=== PATIENT | male | born 1955 | race Caucasian/White ===

== ENCOUNTER → 2018-10-09 14:11 | Outpatient (CLI) | payer OTHER, SELFPAY ==
--- NOTE | 2018-10-09 | DI.RAD.S_ITS ---
This blank DEXA report has been sent in error by the PACS system. The correct and complete report will be forthcoming in 1-2 days. Thank you for your patience and understanding. Dictated by: Brian Ellis M.D. on 10/09/2018 at 15:32 Approved by: Brian Ellis M.D. on 10/09/2018 at 15:32
== END ==
PROVIDERS: PCP Internal Medicine; Visit Provider Internal Medicine
DX: M81.0 Age-related osteoporosis without current pathological fracture (principal); Z82.62 Family history of osteoporosis
CPT/HCPCS: 77080

== ENCOUNTER → 2018-10-23 14:36 | Outpatient (CLI) | payer OTHER, SELFPAY ==
[2018-10-23 15:29] LABS: Blood Urea Nitrogen 27 mg/dL (9-20); Calcium 9.4 mg/dL (8.4-10.2); Carbon Dioxide 23 mmol/L (22-32); Chloride 104 mmol/L (98-107); Estimated Glomerular Filt Rate > 60.0 mL/min (>60); Glucose 107 mg/dL (80-110); HEMOLYSIS 22 (0-50); Sodium 138 mmol/L (137-145)
[2018-10-27 16:09] LABS: Parathyroid Hormone Int 23 pg/mL (14-64)
== END ==
PROVIDERS: PCP Internal Medicine; Visit Provider Internal Medicine
DX: M81.0 Age-related osteoporosis without current pathological fracture (principal); D35.1 Benign neoplasm of parathyroid gland
CPT/HCPCS: 36415; 80048; 83970; 84443

== ENCOUNTER → 2018-12-25 12:24 | Outpatient (CLI) | payer OTHER, SELFPAY ==
[2018-12-25 13:32] LABS: BUN Creatinine Ratio 19.1 (6-22); Blood Urea Nitrogen 21 mg/dL (9-20); Estimated Glomerular Filt Rate > 60.0 mL/min (>60)
== END ==
PROVIDERS: PCP Internal Medicine; Visit Provider Internal Medicine
DX: M81.0 Age-related osteoporosis without current pathological fracture (principal)
CPT/HCPCS: 36415; 82565; 84520

== ENCOUNTER → 2020-04-27 16:39 | Outpatient (CLI) | payer OTHER, SELFPAY ==
[2020-04-27 17:52] LABS: BUN Creatinine Ratio 20.4 (6-22); Blood Urea Nitrogen 22 mg/dL (9-20); Calcium 9.6 mg/dL (8.4-10.2); Carbon Dioxide 35 mmol/L (22-32); Chloride 104 mmol/L (98-107); Estimated Glomerular Filt Rate > 60.0 mL/min (>60); Glucose 113 mg/dL (80-110); HEMOLYSIS < 15 (0-50); Potassium 4.2 mmol/L (3.4-5.1); Sodium 141 mmol/L (137-145)
== END ==
PROVIDERS: PCP Internal Medicine; Referring Provider Internal Medicine; Visit Provider Internal Medicine
DX: M81.0 Age-related osteoporosis without current pathological fracture (principal)
CPT/HCPCS: 36415; 80048

== ENCOUNTER → 2020-06-23 19:19 | Outpatient (ROUT) | payer OTHER, SELFPAY ==
[2020-06-23 19:36] LABS: HEMOLYSIS < 15 (0-50); Iron 93 ug/dL (49-181)
[2020-06-23 19:38] LABS: Aspartate Aminotransferase 39 IU/L (17-59); Blood Urea Nitrogen 21 mg/dL (9-20); Calcium 9.7 mg/dL (8.4-10.2); Carbon Dioxide 32 mmol/L (22-32); Chloride 103 mmol/L (98-107); Cholesterol 152 mg/dL (140-199); Estimated Glomerular Filt Rate > 60.0 mL/min (>60); Glucose 90 mg/dL (80-110); HDL Cholesterol 49 mg/dL (40-60); HEMOLYSIS < 15 (0-50); LDL Cholesterol Calculated 82 mg/dL (<100); Potassium 4.2 mmol/L (3.4-5.1); Sodium 139 mmol/L (137-145); Triglycerides 106 mg/dL (35-150)
[2020-06-23 19:47] LABS: Percent Iron Saturation 29 % (20-50); Total Iron Binding Capacity 316 ug/dL (261-462); Transferrin 246 mg/dL (206-381)
[2020-06-23 20:09] LABS: Prostate Specific Antigen 1.34 ng/mL (0.10-4.00)
[2020-06-23 20:12] LABS: Ferritin 88 ng/mL (18-464); Testosterone 331 ng/dL (71.8-623)
== END ==
PROVIDERS: PCP Internal Medicine; Visit Provider Internal Medicine
DX: Z00.00 Encounter for general adult medical examination without abnormal findings (principal); E78.2 Mixed hyperlipidemia; I67.89 Other cerebrovascular disease; D64.9 Anemia, unspecified; N52.9 Male erectile dysfunction, unspecified
CPT/HCPCS: 80048; 80061; 82728; 83540; 83550; 84153; 84403; 84450; 85025

== ENCOUNTER → 2020-06-29 15:30 | Outpatient (CLI) | payer OTHER, SELFPAY ==
[2020-06-29 17:05] LABS: Add Manual Diff / Slide Review NO; Basophils Absolute Auto 0 /uL (0-100); Basophils Percent Auto 0.7 % (0-2); Eosinophils Absolute Auto 100 /uL (0-450); Eosinophils Percent Auto 1.9 % (2-4); Hematocrit 43.9 % (41-53); Hemoglobin 14.8 g/dL (13.5-17.5); Lymphocytes Absolute Auto 1900 /uL (1100-4500); Lymphocytes Percent Auto 30.9 % (25-40); Mean Corpuscular HGB Conc 33.7 % (30-36); Mean Corpuscular Hemoglobin 32.2 PG (26-34); Mean Corpuscular Volume 95.7 fL (80-100); Monocytes Absolute Auto 400 /uL (0-900); Monocytes Percent Auto 6.7 % (3-14); Neutrophils Absolute Auto 3700 /uL (1500-7000); Neutrophils Percent Auto 59.8 % (50-75); Platelet Count 252 X10^3/uL (150-400); Red Blood Cell Count 4.59 X10^6/uL (4.5-5.9); Red Cell Distribution Width 12.7 % (11.6-14.8); White Blood Cell Count 6.2 X10^3/uL (4.5-11.0)
== END ==
PROVIDERS: PCP Internal Medicine; Referring Provider Internal Medicine; Visit Provider Internal Medicine
DX: D64.9 Anemia, unspecified (principal); R79.9 Abnormal finding of blood chemistry, unspecified
CPT/HCPCS: 85025

== ENCOUNTER → 2020-07-28 10:58 | Outpatient (CLI) | payer OTHER, SELFPAY ==
[2020-07-28] MEDS: COVID-19 VACC(MODERNA-1)/PF 100 MCG/0.5 ML VIAL IM (11:02)
== END ==
PROVIDERS: PCP Internal Medicine; Visit Provider Internal Medicine
DX: Z23 Encounter for immunization (principal)
CPT/HCPCS: 0011A; 91301

== ENCOUNTER → 2020-08-25 10:48 | Outpatient (CLI) | payer OTHER, SELFPAY ==
[2020-08-25] MEDS: COVID-19 VACC #2, MRNA(MOD) 100 MCG/0.5 ML VIAL IM (10:55)
== END ==
PROVIDERS: PCP Internal Medicine; Visit Provider Internal Medicine
DX: Z23 Encounter for immunization (principal)
CPT/HCPCS: 0012A; 91301

== ENCOUNTER → 2021-02-01 15:02 | Outpatient (CLI) | payer OTHER, SELFPAY | PROVIDERS: PCP Internal Medicine; Referring Provider Internal Medicine; Visit Provider Internal Medicine | DX: M85.852 Other specified disorders of bone density and structure, left thigh (principal); Z82.62 Family history of osteoporosis | CPT/HCPCS: 77080 ==

== ENCOUNTER → 2021-05-07 11:23 | Outpatient (CLI) | payer OTHER, SELFPAY ==
[2021-05-07 14:37] LABS: Alanine Aminotransferase 33 IU/L (<50); Albumin Globulin Ratio 1.5 (1.0-2.8); Alkaline Phosphatase 92 U/L (38-126); Aspartate Aminotransferase 33 IU/L (17-59); BUN Creatinine Ratio 16.5 (6-22); Bilirubin Total 0.8 mg/dL (0.2-1.3); Blood Urea Nitrogen 19 mg/dL (9-20); Calcium 9.6 mg/dL (8.4-10.2); Carbon Dioxide 29 mmol/L (22-32); Chloride 104 mmol/L (98-107); Estimated Glomerular Filt Rate > 60.0 mL/min (>60); Globulin 2.7 g/dL (1.7-4.1); Glucose 104 mg/dL (80-110); HEMOLYSIS < 15 (0-50); Potassium 4.6 mmol/L (3.4-5.1); Sodium 140 mmol/L (137-145); Total Protein 6.7 g/dL (6.3-8.2)
== END ==
PROVIDERS: PCP Internal Medicine; Referring Provider Internal Medicine; Visit Provider Internal Medicine
DX: M81.0 Age-related osteoporosis without current pathological fracture (principal)
CPT/HCPCS: 36415; 80053

== ENCOUNTER → 2021-11-30 11:47 | Outpatient (CLI) | payer MEDICARE, OTHER, SELFPAY ==
--- NOTE | 2021-11-30 11:51 | DI.RAD.S_ITS ---
PROCEDURE: XR KUB INDICATIONS: kidney stones TECHNIQUE: One view of the abdomen acquired. COMPARISON: [facility], , KUB XRAY (1 VIEW ABDOMEN), 04/28/2017, 13:21. FINDINGS: Surgical changes and devices: None. Bowel: Significant fecal stasis throughout the colon is seen. No gross free air. Soft tissues: No suspicious abdominal calcifications. Visualized solid organ contours appear normal in size. Bones: No suspicious bony lesions. IMPRESSION: No gross renal stone is seen. Constipation. No gross free air. Dictated by: Brian Ellis M.D. on 11/30/2021 at 12:13 Approved by: Brian Ellis M.D. on 11/30/2021 at 12:14
== END ==
PROVIDERS: PCP Internal Medicine; Referring Provider Specialist; Visit Provider Specialist
DX: N20.1 Calculus of ureter (principal); N23 Unspecified renal colic; K59.00 Constipation, unspecified; Z87.442 Personal history of urinary calculi
CPT/HCPCS: 74018

== ENCOUNTER → 2022-02-08 11:55 | Outpatient (CLI) | payer MEDICARE, OTHER, SELFPAY ==
[2022-02-08 12:38] LABS: Hematocrit 43.5 % (41-53); Hemoglobin 14.9 g/dL (13.5-17.5); Mean Corpuscular HGB Conc 34.2 % (30-36); Mean Corpuscular Hemoglobin 33.2 PG (26-34); Platelet Count 234 X10^3/uL (150-400); Red Blood Cell Count 4.48 X10^6/uL (4.5-5.9); Red Cell Distribution Width 13.3 % (11.6-14.8); White Blood Cell Count 5.8 X10^3/uL (4.5-11.0)
[2022-02-08 12:51] LABS: Alanine Aminotransferase 25 IU/L (<50); Albumin 4.5 g/dL (3.5-5.0); Albumin Globulin Ratio 1.5 (1.0-2.8); Alkaline Phosphatase 82 U/L (38-126); Aspartate Aminotransferase 31 IU/L (17-59); BUN Creatinine Ratio 22.2 (6-22); Blood Urea Nitrogen 22 mg/dL (9-20); Calcium 9.2 mg/dL (8.4-10.2); Carbon Dioxide 30 mmol/L (22-32); Chloride 105 mmol/L (98-107); Cholesterol 161 mg/dL (140-199); Estimated Glomerular Filt Rate > 60 mL/min (>60); Glucose 94 mg/dL (80-110); HDL Cholesterol 58 mg/dL (40-60); HEMOLYSIS < 15 (0-50); LDL Cholesterol Calculated 82 mg/dL (<100); Potassium 4.2 mmol/L (3.4-5.1); Sodium 141 mmol/L (137-145); Total Protein 7.5 g/dL (6.3-8.2); Triglycerides 104 mg/dL (35-150)
[2022-02-08 13:16] LABS: Prostate Specific Antigen 1.83 ng/mL (0.10-4.00)
[2022-02-08 13:17] LABS: TSH w/ Reflex to FT4 1.25 uIU/mL (0.47-4.68)
[2022-02-08 13:18] LABS: Testosterone 375 ng/dL (71.8-623)
[2022-02-09 07:36] LABS: Calcium 9.4 mg/dL (8.6-10.2); Parathyroid Hormone, Intact 37 pg/mL (15-65)
== END ==
PROVIDERS: PCP Internal Medicine; Referring Provider Internal Medicine; Visit Provider Internal Medicine
DX: E78.2 Mixed hyperlipidemia (principal); N40.0 Benign prostatic hyperplasia without lower urinary tract symptoms; I67.9 Cerebrovascular disease, unspecified; N52.9 Male erectile dysfunction, unspecified; Z86.39 Personal history of other endocrine, nutritional and metabolic disease
CPT/HCPCS: 36415; 80053; 80061; 82310; 83970; 84153; 84403; 84443; 85027

== ENCOUNTER → 2022-02-15 11:28 | Outpatient (CLI) | payer MEDICARE, OTHER, SELFPAY | PROVIDERS: PCP Internal Medicine; Referring Provider Internal Medicine; Visit Provider Internal Medicine | DX: M81.0 Age-related osteoporosis without current pathological fracture (principal); Z86.39 Personal history of other endocrine, nutritional and metabolic disease | CPT/HCPCS: 77080 ==

== ENCOUNTER → 2022-03-15 16:05 | Outpatient (CLI) | payer MEDICARE, OTHER, SELFPAY ==
--- NOTE | 2022-03-15 16:07 | DI.MRI.S_ITS ---
PROCEDURE: MR CERVICAL SPINE WO CON INDICATIONS: left C6 radiculopathy TECHNIQUE: Noncontrast sagittal T1 spin echo and T2 fast spin echo, sagittal STIR, foraminal oblique sagittal T2 fast spin echo, and axial gradient echo or T2 fast spin echo through the cervical spine. COMPARISON: [facility], , C-SPINE WITHOUT CONTRAST, 01/21/2011, 11:58. FINDINGS: Image quality: Excellent. Alignment and Curvature: There is normal bony alignment. Bone Marrow: Marrow demonstrates normal overall signal. Spinal Cord: Visualized spinal cord has normal size and signal. No cerebellar tonsillar herniation. Paraspinous Soft Tissues: No paravertebral masses. Prevertebral soft tissues are normal in thickness. C2-C3: Normal appearance. C3-C4: Posterior disc bulge results in mild central stenosis. Hypertrophic uncovertebral joint associated with moderate left and no right foraminal stenosis. C4-C5: Disc space narrowing and posterior disc osteophyte complex results in mild central stenosis. Mild right and no left foraminal stenosis C5-C6: Disc space narrowing with posterior disc osteophyte complex and hypertrophic uncovertebral joints results in severe left and moderate right foraminal stenosis. Mild central stenosis. C6-C7: Disc space narrowing and posterior disc osteophyte complex again results in mild central stenosis. Moderate left and right foraminal stenosis C7-T1: Normal appearance. IMPRESSION: 1. Multilevel degenerative disc disease and arthropathy results in varying degrees of central and foraminal stenosis including severe left foraminal stenosis at C5-6 Approved by: Kenneth Swartz M.D. on 03/15/2022 at 18:15
== END ==
PROVIDERS: PCP Internal Medicine; Referring Provider Physical Medicine & Rehabilitation; Visit Provider Physical Medicine & Rehabilitation
DX: M54.12 Radiculopathy, cervical region (principal); M50.321 Other cervical disc degeneration at C4-C5 level; M48.02 Spinal stenosis, cervical region
CPT/HCPCS: 72141

== ENCOUNTER 2022-04-25 08:46 | Outpatient (CLI) | payer MEDICARE, OTHER, SELFPAY ==
[2022-04-25] VITALS (9 sets, daily range): BP systolic 129–148; BP diastolic 82–94; PULSE 66–75; RESP 13–16; TEMP 36.2; O2SAT 98–100
--- NOTE | 2022-04-25 08:47 | DI.RAD.S_ITS ---
PROCEDURE: PAIN C/T FACET INJ/BLK 1ST L INDICATIONS: SPINAL STENOSIS COMPARISON: None. FINDINGS: Fluoroscopic spot filming was performed to verify placement of spinal needles near the C4-5, C5-6 and C6-7 level(s), as labeled on the films. Appropriate location(s) of the needle tip(s) was confirmed by injection of iodinated contrast. IMPRESSION: Fluoroscopic guidance Approved by: Kenneth Swartz M.D. on 04/25/2022 at 16:31
[2022-04-25] MEDS: MIDAZOLAM 2 MG/2 ML VIAL IV (09:38)
[2022-04-25] MEDS: IOPAMIDOL 15 ML VIAL 3 ML INJ (09:43)
[2022-04-25] MEDS: DEXAMETHASONE 10 MG/ML VIAL 30 MG INJ (09:43)
[2022-04-25] MEDS: BUPIVACAINE 0.5% (PF) VIAL 2 ML INJ (09:43)
[2022-04-25] MEDS: MIDAZOLAM 2 MG/2 ML VIAL 1 MG IV (09:46)
--- NOTE | 2022-04-25 09:59 | P.PCN_ITS ---
Date/Time/Diagnoses Date of procedure: 04/25/22 Time of procedure: 09:59 Pre-procedure diagnosis: 1. FACET ARTHROPATHY 2. AXIAL NECK PAIN Post-procedure diagnosis: same Procedure Notes Procedure: 1. FLUOROSCOPICALLY GUIDED, CONTRAST-CONTROLLED LEFT C4/5, C5/6 AND C6/7 FACET JOINT INJECTIONS WITH CONSCIOUS SEDATION. Indications: Ashok is referred by Dr. Rose for treatment of Axial Neck Pain Physician: Rojelio Echavarria Total Fluoroscopy time (seconds): 16 Total sedation minutes: 16 Complications: none Procedure in detail & Post-procedure care: DESCRIPTION OF PROCEDURE Fluoroscopically guided, contrast-controlled left C4/5, C5/6 and C6/7 facet joint injections with conscious sedation. Following review of allergy and review of potential side effects and complications, including, but not necessarily limited to, infection, allergic reaction, local tissue breakdown, stroke, temporary or permanent nerve injury and paralysis, the patient indicated that the patient understood and agreed to proceed. An informed consent document was signed by the patient, witnessed by a nurse, and placed in the patient's chart. Additionally, other treatment options including medications, modalities, and physical therapy were reviewed with the patient. After review of previous anaesthesic history and IV conscious sedation the patient was deemed safe to proceed with today?s procedure with IV conscious sedation as ASA class II designation. Safety time-out was performed to confirm patient ID, procedure to be performed and site of procedure. IV sedation was accomplished with a combination of 3mg of Versed was administered by the RN after DO order, titrated to patient comfort during the course of the procedure while the patient remained responsive to all verbal commands In the prone position, following sterile prep and drape of the cervical spine region, the posterior aspect of the left C4/5, C5/6 and C6/7 facet joints were identified fluoroscopically. The skin was anesthetized via a 25-gauge 1.5-inch needle with 1% lidocaine solution into the corresponding facet joints. At this point, a 25-gauge 2.5-inch spinal needle was atraumatically introduced and advanced under fluoroscopic guidance into the corresponding facet joints. Following negative aspiration, injections of approximately 0.2cc of Isovue 200 confirmed interarticular placement without vascular uptake. At this point, a total of 1cc including 0.5cc or 5mg of dexamethasone combined with 0.5cc of 1% lidocaine solution was injected without complication into each of the corresponding facet joints. The procedure tolerated the procedure well without signs or symptoms of complications prior to transfer to the recovery area continued monitoring without incident. The patient was then transferred to the recovery area where they were observed for an appropriate period of time after the injection. The patient reported a VAS score of 7 prior to the procedure and a post- procedure VAS of 0. POST OP INSTRUCTIONS They were provided a Pain Log to continue to record their response to the target-specific procedure prior to their follow-up visit with their referring physician. Additionally, specific post-injection care instructions and a contact number to our office were provided if concerns arise regarding possible complications associated with the procedure are suspected.
== END 2022-04-25 10:26 | disposition home or self-care (01) ==
LOC: RAD 08:47
PROVIDERS: PCP Internal Medicine; Referring Provider Physical Medicine & Rehabilitation; Visit Provider Physical Medicine & Rehabilitation
DX: M47.812 Spondylosis without myelopathy or radiculopathy, cervical region (principal)
CPT/HCPCS: 64490; 64491; 64492; 99152; J1100; J2250

== ENCOUNTER → 2022-05-13 15:30 | Outpatient (CLI) | payer MEDICARE, OTHER, SELFPAY ==
[2022-05-13 17:26] LABS: Alanine Aminotransferase 28 IU/L (<50); Albumin 4.1 g/dL (3.5-5.0); Albumin Globulin Ratio 1.2 (1.0-2.8); Alkaline Phosphatase 115 U/L (38-126); Aspartate Aminotransferase 27 IU/L (17-59); BUN Creatinine Ratio 19.3 (6-22); Bilirubin Total 0.5 mg/dL (0.2-1.3); Blood Urea Nitrogen 22 mg/dL (9-20); Calcium 9.3 mg/dL (8.4-10.2); Carbon Dioxide 26 mmol/L (22-32); Chloride 105 mmol/L (98-107); Estimated Glomerular Filt Rate > 60 mL/min (>60); Globulin 3.3 g/dL (1.7-4.1); Glucose 91 mg/dL (80-110); HEMOLYSIS < 15 (0-50); Potassium 4.1 mmol/L (3.4-5.1); Sodium 142 mmol/L (137-145); Total Protein 7.4 g/dL (6.3-8.2)
== END ==
PROVIDERS: PCP Internal Medicine; Referring Provider Internal Medicine; Visit Provider Internal Medicine
DX: M81.8 Other osteoporosis without current pathological fracture (principal)
CPT/HCPCS: 36415; 80053

== ENCOUNTER 2022-05-30 08:59 | Outpatient (CLI) | payer MEDICARE, OTHER, SELFPAY ==
[2022-05-30] VITALS (8 sets, daily range): BP systolic 137–164; BP diastolic 94–100; PULSE 65–79; RESP 15–20; TEMP 36; O2SAT 97–100
--- NOTE | 2022-05-30 09:37 | DI.RAD.S_ITS ---
PROCEDURE: PAIN C/T INTERLAMINAR INJECT INDICATIONS: SPINAL STENOSIS COMPARISON: None. FINDINGS: Fluoroscopic spot filming was performed to verify placement of spinal needles at the C6-7 level(s), as labeled on the films. Appropriate location(s) of the needle tip(s) was confirmed by injection of iodinated contrast. IMPRESSION: Intraoperative fluoroscopy used for C6-7 epidural injection. Dictated by: Kamla Hunter M.D. on 05/30/2022 at 14:51 Approved by: Kamla Hunter M.D. on 05/30/2022 at 14:51
[2022-05-30] MEDS: MIDAZOLAM 2 MG/2 ML VIAL 4 MG IV (09:51)
[2022-05-30] MEDS: IOPAMIDOL 15 ML VIAL 3 ML INJ (09:53)
[2022-05-30] MEDS: BUPIVACAINE 0.25% (PF) VIAL 2 ML INJ (09:54)
[2022-05-30] MEDS: DEXAMETHASONE 10 MG/ML VIAL 30 MG INJ (09:56)
--- NOTE | 2022-05-30 10:09 | P.PCN_ITS ---
Date/Time/Diagnoses Date of procedure: 05/30/22 Time of procedure: 10:09 Pre-procedure diagnosis: 1. CERVICAL STENOSIS, 2. CERVICAL HNP WITH UPPER EXTREMITY RADICULAR FEATURES Post-procedure diagnosis: same Procedure Notes Procedure: 1. FLUORSCOPICALLY GUIDED CONTRAST CONTROLLED INTERLAMINAR EPIDURAL STEROID INJECTION - C6/7 TL RICHA Indications: Ashok is referred by Dr. Rose for treatment of Cervical HNP with Upper Extremity Paresthesias. Physician: Rojelio Echavarria Total Fluoroscopy time (seconds): 2 Total sedation minutes: 15 Complications: none Procedure in detail & Post-procedure care: FINDINGS Cervical Stenosis due to disc deterioration and nerve root irritation and nerve root irritation DESCRIPTION OF PROCEDURE Fluoroscopically guided, contrast-controlled C6/7 translaminar epidural steroid injection with conscious sedation. Following review of allergy and review of potential side effects and complications, including, but not necessarily limited to, infection, allergic reaction, local tissue breakdown, temporary as well as permanent nerve injury, stroke, paralysis, and possible , the patient indicated that patient understood and agreed to proceed. An informed consent document was signed by the patient, witnessed by a nurse, and placed in the patient's chart. Additionally, other treatment options including modalities, medications, and physical therapy were reviewed with the patient. After review of previous anaesthesic history and IV conscious sedation the patient was deemed safe to proceed with today?s procedure with IV conscious sedation as ASA class II designation. Safety time-out was performed to confirm patient ID, procedure to be performed and site of procedure. IV sedation was accomplished with a combination of 4mg of Versed administered by the RN after DO order, titrated to patient comfort during the course of the procedure while the patient remained responsive to all verbal commands. In the prone position, following sterile prep and drape of the cervical region, the C6/7 translaminar space was identified fluoroscopically. The skin was anesthetized via a 25-gauge 1.5-inch needle with 1% lidocaine solution. At this point, a 25-gauge, 2.5-inch short bevel spinal needle was atraumatically introduced and advanced under fluoroscopic guidance into epidural space at the C6/7 translaminar space. Depth was confirmed on lateral view. Radiological data, including multiple fluoroscopic views of the cervical spine, reveal a spinal needle at the C6/7 translaminar space. Lateral views then show placement of the needle in the epidural space. Subsequent views show contrast material flowing superiorly and inferiorly in the epidural space. DSA fluoroscopy with live contrast injection, once again, confirmed no vascular or intrathecal uptake. At this point, using loss of resistance technique with saline and air, the epidural space was entered. Following negative aspiration, injection of approximately 1.5 cc of Isovue-200 with live fluoroscopy in the AP view confirmed epidural flow in the epidural space without vascular or intrathecal uptake observed. Subsequently, a test dose of 1 cc of 1% lidocaine solution was injected and patient was observed for two minutes without signs or symptoms of complications, including abdominal pain, shortness of breath, bilateral upper or lower extremity weakness, nausea and vomiting, prior to steroid injection. At this point, 3cc or 30mg of dexamethasone was then injected without incident. The patient tolerated the procedure well without signs or symptoms of complicat ions prior to being transferred to the recovery area for further monitoring, The patient was then transferred to the recovery area where they were observed for an appropriate period of time after the injection. The patient reported a VAS score of 6 prior to the procedure and a post-procedure VAS of 0. POST OP INSTRUCTIONS The patient was provided a Pain Log to continue to record their response to the target-specific procedure prior to follow-up visit with the referring provider. Additionally, specific post-injection care instructions and a contact number to our office were provided if concerns arise regarding possible complications associated with the procedure are suspected.
== END 2022-05-30 10:27 | disposition home or self-care (01) ==
LOC: RAD 09:00
PROVIDERS: PCP Internal Medicine; Referring Provider Physical Medicine & Rehabilitation; Visit Provider Physical Medicine & Rehabilitation
DX: M48.02 Spinal stenosis, cervical region (principal); M50.123 Cervical disc disorder at C6-C7 level with radiculopathy
CPT/HCPCS: 62321; 99152; J1100; J2250; J3490

== ENCOUNTER → 2022-10-17 16:20 | Outpatient (CLI) | payer MEDICARE, OTHER, SELFPAY ==
--- NOTE | 2022-10-17 16:21 | DI.RAD.S_ITS ---
PROCEDURE: XR LUMBAR SPINE MIN 4V INDICATIONS: Low back pain TECHNIQUE: 5 views of the lumbar spine were acquired, including bilateral oblique views. COMPARISON: [facility], CR, L-SPINE 2-3 VIEWS, 01/29/2013, 7:11. [facility], CR, L-SPINE 2-3 VIEWS, 04/17/2009, 11:10. FINDINGS: Bones: 5 nonrib-bearing vertebrae are present. There is normal bony alignment. No vertebral body compression fractures. No suspicious bony lesions. Moderate disc height loss at L4-5 and L5-S1. Facet arthrosis L5-S1. Soft tissues: Overlying bowel gas pattern is normal. No suspicious soft tissue calcifications. Oblique images: No pars defects. IMPRESSION: Moderate disc height loss at L4-5 and L5-S1. Facet arthrosis L5-S1. Dictated by: Isauro Acharya M.D. on 10/17/2022 at 16:51 Approved by: Isauro Acharya M.D. on 10/17/2022 at 16:53
== END ==
PROVIDERS: PCP Internal Medicine; Referring Provider Physical Medicine & Rehabilitation; Visit Provider Physical Medicine & Rehabilitation
DX: M47.817 Spondylosis without myelopathy or radiculopathy, lumbosacral region (principal); M54.50 Low back pain, unspecified; G89.29 Other chronic pain
CPT/HCPCS: 72110

== ENCOUNTER → 2022-10-28 13:40 | Outpatient (CLI) | payer MEDICARE, OTHER, SELFPAY ==
--- NOTE | 2022-10-28 13:42 | DI.MRI.S_ITS ---
PROCEDURE: MR LUMBAR SPINE WO CON INDICATIONS: Chronic progressive episodic low back pain TECHNIQUE: Noncontrast sagittal T1 spin echo and T2 fast echo, sagittal STIR, and T2 fast spin echo through the lumbar spine. In cases with scoliosis, additional coronal T2 fast spin echo may be performed. COMPARISON: [facility], MR, L-SPINE WITHOUT CONTRAST, 02/08/2013, 9:20. [facility], CR, XR LUMBAR SPINE MIN 4V, 10/17/2022, 16:27. FINDINGS: Image quality: Diagnostic, with note made of motion artifact. Alignment and Curvature: There is normal bony alignment. Bone Marrow: Marrow is of normal overall signal. No acute vertebral body compression fractures. Spinal Cord: Conus medullaris terminates at the T12-L1 level. Visualized cord demonstrates normal signal and size. Paraspinous Soft Tissues: No paravertebral masses. T12-L1: Normal appearance. L1-L2: No significant abnormality is seen. L2-L3: Level within normal limits. L3-L4: The disc height and disk signal are relatively well-preserved. Mild generalized disc bulge is seen. Mild facet joint hypertrophy is seen. Mild central canal narrowing is seen. There is minimal right-sided and [id number] left-sided neural foraminal narrowing. Minimal central canal narrowing is seen. These imaging findings have progressed compared to the prior study. L4-L5: Moderate loss of disc height is seen. Loss of disc signal is seen. Moderate disc bulge is seen, which is eccentric to the right. There is a central/right disc protrusion. There is a focal annular fissure seen posteriorly. Moderate facet joint hypertrophy is seen. There is moderate left-sided and at least moderate right-sided neural foraminal narrowing. There is a degree of compression seen upon the exiting right L4 nerve root. Mild central canal narrowing is seen. The neural foraminal narrowing has progressed compared to the prior. The previously seen central disc extrusion is improved compared to 2013. L5-S1: At least moderate loss of disc height and disc signal can be seen. Mild to moderate disc bulge is seen, which is slightly eccentric to the left. There is a slight central disc protrusion seen. There is a focal annular fissure seen posteriorly. Mild facet joint hypertrophy is seen. There is at least moderate bilateral neural foraminal narrowing seen. Minimal compression can be seen upon the exiting nerve roots. No significant central canal narrowing can be seen. There is slight progression compared to the prior. IMPRESSION: Lumbar spine degenerative changes are seen, which are worst inferiorly. The degenerative changes have overall progressed compared to 2013, although there is regression of the previously seen L4-L5 disc extrusion. Dictated by: Caden Kaye M.D. on 10/28/2022 at 15:15 Approved by: Caden Kaye M.D. on 10/28/2022 at 15:18
== END ==
PROVIDERS: PCP Internal Medicine; Referring Provider Physical Medicine & Rehabilitation; Visit Provider Physical Medicine & Rehabilitation
DX: M47.816 Spondylosis without myelopathy or radiculopathy, lumbar region (principal); M51.26 Other intervertebral disc displacement, lumbar region
CPT/HCPCS: 72148

== ENCOUNTER 2022-11-28 14:42 | Outpatient (CLI) | payer MEDICARE, OTHER, SELFPAY ==
[2022-11-28] VITALS (11 sets, daily range): BP systolic 108–137; BP diastolic 63–95; PULSE 64–82; RESP 13–21; TEMP 36.8; O2SAT 96–99
--- NOTE | 2022-11-28 14:43 | DI.RAD.S_ITS ---
PROCEDURE: PAIN L/S FACET INJ/BLK 1ST ADELFO COMPARISON: None. INDICATIONS: SPONDYLOSIS FINDINGS: Fluoroscopic views during facet joint injection at L4-5 and L5-S1 were performed. IMPRESSION: Fluoroscopic views during facet joint injection were performed. Dictated by: Hussein Quevedo M.D. on 11/28/2022 at 16:12 Approved by: Hussein Quevedo M.D. on 11/28/2022 at 16:13
[2022-11-28] MEDS: BETAMETHASONE 30 MG/5 ML MDV 12 MG INJ (15:24)
[2022-11-28] MEDS: BUPIVACAINE 0.5% (PF) 10 ML VIAL 5 ML INJ (15:28)
[2022-11-28] MEDS: IOPAMIDOL 15 ML VIAL 3 ML INJ (15:30)
[2022-11-28] MEDS: LIDOCAINE 1% (PF) 5 ML INJ (15:30)
[2022-11-28] MEDS: MIDAZOLAM 2 MG/2 ML VIAL 3 MG IV (15:31)
--- NOTE | 2022-11-28 15:44 | P.PCN_ITS ---
Date/Time/Diagnoses Date of procedure: 11/28/22 Time of procedure: 15:44 Pre-procedure diagnosis: 1. FACET ARTHROPATHY 2. AXIAL LBP 3. MULTILEVEL DDD Post-procedure diagnosis: same Procedure Notes Procedure: 1. FLUOROSCOPICALLY GUIDED CONTRAST CONTROLLED FACET JOINT INJECTIONS BILATERAL L4/5, L5/S1 Indications: Ashok is referred by Dr. Rose for treatment of Axial LBP Physician: Rojelio Echavarria Total Fluoroscopy time (seconds): 19 Total sedation minutes: 17 Complications: none Procedure in detail & Post-procedure care: FINDINGS Multilevel Facet Arthropathy with Clinically significant axial LBP DESCRIPTION OF PROCEDURE Fluoroscopically guided, contrast-controlled bilateral L4/5, L5/S1 facet joint injections. Following review of allergy and review of potential side effects and complications, including, but not necessarily limited to, infection, allergic reaction, local tissue breakdown, stroke, temporary or permanent nerve injury, paralysis, and possible , the patient indicated that the patient understood and agreed to proceed. An informed consent document was signed by the patient, witnessed by a nurse, and placed in the patient's chart. Additionally, other treatment options including medications, modalities, and physical therapy were reviewed with the patient. After review of previous anaesthesic history and IV conscious sedation the patient was deemed safe to proceed with today?s procedure with IV conscious sedation as ASA class II designation. Safety time-out was performed to confirm patient ID, procedure to be performed and site of procedure. IV sedation was accomplished with a combination of 3mg of Versed was administered by the RN after DO order, titrated to patient comfort during the course of the procedure while the patient remained responsive to all verbal commands In the prone position, following sterile prep and drape of the lumbar region, the posterior aspect of the L4/5, L5/S1 facet joints were identified fluoroscopically. The skin was anesthetized via a 25-gauge 1.5inch needle with 1% lidocaine solution into the corresponding facet joints. At this point, a 22- gauge 3.5-inch spinal needle was atraumatically introduced and advanced under fluoroscopic guidance into the corresponding facet joints. Following negative aspiration, injections of approximately 0.2cc of Isovue 200 confirmed interarticular placement without vascular uptake. The identical procedure was then performed at the L4/5, L5/S1 facet joints on the left. Radiological data, including multiple fluoroscopic views of the lumbosacral spine, reveal a spinal needle at the L4/5, L5/S1 facet joints bilaterally. Subsequent views show flow of contrast material both superiorly and inferiorly within the joint space without vascular or intrathecal uptake. At this point, a total of 0.5cc including a mixture of 0.25cc Marcaine and 0.25cc betamethasone was injected without complication into each of the corresponding facet joints. The patient tolerated the procedure well without signs or symptoms of complications prior to transfer to the recovery area continued monitoring without incident. The patient was then transferred to the recovery area where they were observed for an appropriate period of time after the injection. The patient reported a VAS score of 7 prior to the procedure and a post- procedure VAS of 0. POST OP INSTRUCTIONS The patient was provided a Pain Log to continue to record their response to the target-specific procedure prior to follow-up visit with their referring physician. Additionally, specific post-injection care instructions and a contact number to our office were provided if concerns arise regarding possible complications associated with the procedure are suspected.
== END 2022-11-28 16:26 | disposition home or self-care (01) ==
PROVIDERS: PCP Internal Medicine; Referring Provider Physical Medicine & Rehabilitation; Visit Provider Physical Medicine & Rehabilitation
DX: M47.816 Spondylosis without myelopathy or radiculopathy, lumbar region (principal)
CPT/HCPCS: 64493; 64494; 99152; 99153; J2250

== ENCOUNTER 2023-01-07 13:15 | Outpatient (CLI) | payer MEDICARE, OTHER, SELFPAY ==
[2023-01-07] VITALS (8 sets, daily range): BP systolic 129–168; BP diastolic 78–120; PULSE 60–75; RESP 12–19; TEMP 36.6; O2SAT 97–100
--- NOTE | 2023-01-07 13:18 | DI.RAD.S_ITS ---
PROCEDURE: PAIN L/S FACET INJ/BLK 1ST ADELFO COMPARISON: [facility], XA, PAIN L/S FACET INJ/BLK 1ST ADELFO, 11/28/2022, 15:23. INDICATIONS: SPONDYLOSIS FINDINGS: Access needle tips at bilateral L4, L5 and S1 asia-pedicular levels. Injection of small amount of contrast material demonstrates axis needle tips are extra thecal. IMPRESSION: Access needle tips at bilateral L4, L5 and S1. Pedicular levels for L4, L5 and S1 medial branch block. Dictated by: Lindsey Schmidt MD, PhD on 01/07/2023 at 15:14 Approved by: Lindsey Schmidt MD, PhD on 01/07/2023 at 15:16
[2023-01-07] MEDS: MIDAZOLAM 2 MG/2 ML VIAL IV (14:29)
[2023-01-07] MEDS: LIDOCAINE 1% 20 ML 5 ML INJ (14:32)
[2023-01-07] MEDS: IOPAMIDOL 15 ML VIAL 3 ML INJ (14:32)
[2023-01-07] MEDS: BUPIVACAINE 0.5% (PF) 10 ML VIAL 5 ML INJ (14:32)
--- NOTE | 2023-01-07 14:49 | PM.PROC.IR.1 ---
Date/Time/Diagnoses Date of procedure: 01/07/23 Time of procedure: 14:49 Pre-procedure diagnosis: 1. FACET ARTHROPATHY Post-procedure diagnosis: same Procedure Notes Procedure: 1. BILATERAL- L4, L5 and S1 DIAGNOSTIC MB BLOCKS with LA Anesthetic Indications: Ashok is referred by ZACK Oliva for treatment of Bilateral Axial LBP. Physician: Rojelio Echavarria Total Fluoroscopy time (seconds): 12 Total sedation minutes: 13 Complications: none Procedure in detail & Post-procedure care: DESCRIPTION OF PROCEDURE Fluoroscopically guided, contrast-controlled bilateral L4, L5 and S1 medial branch blocks with 0.5cc of 0.5% Marcaine. Following review of allergy and review of potential side effects and complications, including, but not necessarily limited to, infection, allergic reaction, local tissue breakdown, nerve injury, paralysis, stroke and possible , the patient indicated that the patient understood and agreed to proceed. An informed consent document was signed by the patient, witnessed by a nurse, and placed in the patient's chart. After review of previous anaesthesic history and IV conscious sedation the patient was deemed safe to proceed with today's procedure with IV conscious sedation as ASA class II designation. Safety time-out was performed to confirm patient ID, procedure to be performed and site of procedure. IV sedation was accomplished with a combination of 2mg of Versed was administered by the RN after DO order, titrated to patient comfort during the course of the procedure while the patient remained responsive to all verbal commands In the prone position, following sterile prep and drape of the lumbar region, the right L4, L5 and S1 anatomical location of the medial branch of the dorsal ramus was identified fluoroscopically. Subsequently an anesthetic skin wheal using 1% lidocaine solution was initiated at each of the anatomical spots. Subsequently then a 22-gauge 3.5-inch spinal needle was atraumatically introduced and advanced under fluoroscopic guidance at each of the corresponding sites at the right L4, L5 and S1 MB. After negative aspiration, 0.2cc of Isovue 200 was injected, confirming placement without vascular or intrathecal uptake. Subsequently then 0.5cc of 0.5% Marcaine solution was injected at each of the corresponding sites at the right L4, L5 and S1 medial branch locations. The identical procedure was replicated on the left. The patient tolerated the procedure well without signs or symptoms of complications prior to transfer to the recovery area continued monitoring without incident. Post-procedure, the patient was monitored initiating provocative activities to measure the amount of relief from block of the facetogenic pain. The patient reported a VAS of 7 prior to the procedure and a post-procedure VAS of 1. It has been a pleasure to assist in the diagnostic and therapeutic care of your patient. POST OP INSTRUCTIONS The patient was provided with a Pain Log to complete over the next several hours and subsequent days prior to the patient's follow up with the ordering physician. If the patient has curriculum development coordinator relief to the solution applied, then they may be a candidate for medial branch rhizotomy. The patient is aware, was provided, once again, with a Pain Log and will follow up with the referring physician for review and clinical correlation
== END 2023-01-07 15:03 | disposition home or self-care (01) ==
PROVIDERS: PCP Nurse Practitioner Family; Referring Provider Physical Medicine & Rehabilitation; Visit Provider Physical Medicine & Rehabilitation
DX: M47.816 Spondylosis without myelopathy or radiculopathy, lumbar region (principal); M47.817 Spondylosis without myelopathy or radiculopathy, lumbosacral region
CPT/HCPCS: 64493; 64494; 99152; J2250

== ENCOUNTER 2023-02-25 13:05 | Outpatient (CLI) | payer MEDICARE, OTHER, SELFPAY ==
[2023-02-25] VITALS (12 sets, daily range): BP systolic 100–158; BP diastolic 68–94; PULSE 59–71; RESP 12–20; TEMP 36.7; O2SAT 98–100
--- NOTE | 2023-02-25 13:09 | DI.RAD.S_ITS ---
PROCEDURE: PAIN L/S FACET INJ/BLK 1ST ADELFO COMPARISON: [facility], XA, PAIN L/S FACET INJ/BLK 1ST ADELFO, 01/07/2023, 14:31. INDICATIONS: L4, L5 and S1 medial branch block SA FINDINGS: Access needles at the bilateral L4, L5 and S1 pedicles . Injection of small quantity of contrast material demonstrates axis needles are extra thecal. IMPRESSION: Access needles at the bilateral L4, L5 and S1 pedicles for bilateral L4, L5 and S1 medial branch blocks. Dictated by: Lindsey Schmidt MD, PhD on 02/25/2023 at 15:11 Approved by: Lindsey Schmidt MD, PhD on 02/25/2023 at 15:11
[2023-02-25] MEDS: LIDOCAINE 2% INJ MDV 20ML 5 ML INJ (14:40)
[2023-02-25] MEDS: IOPAMIDOL 15 ML VIAL 3 ML INJ (14:40)
[2023-02-25] MEDS: MIDAZOLAM 2 MG/2 ML VIAL IV (14:40)
--- NOTE | 2023-02-25 14:55 | P.PCN_ITS ---
Date/Time/Diagnoses Date of procedure: 02/25/23 Time of procedure: 14:55 Pre-procedure diagnosis: 1. FACET ARTHROPATHY Post-procedure diagnosis: same Procedure Notes Procedure: 1. BILATERAL- L4, L5 and S1 DIAGNOSTIC MB BLOCKS with SA Anesthetic Indications: Ashok is referred by ZACK Oliva for treatment of Bilateral Axial LBP. Physician: Rojelio Echavarria Total Fluoroscopy time (seconds): 15 Total sedation minutes: 20 Complications: none Procedure in detail & Post-procedure care: DESCRIPTION OF PROCEDURE Fluoroscopically guided, contrast-controlled bilateral L4, L5 and S1 medial branch blocks with 0.5cc of 2% Lidocaine. Following review of allergy and review of potential side effects and complications, including, but not necessarily limited to, infection, allergic reaction, local tissue breakdown, nerve injury, paralysis, stroke and possible , the patient indicated that the patient understood and agreed to proceed. An informed consent document was signed by the patient, witnessed by a nurse, and placed in the patient's chart. After review of previous anaesthesic history and IV conscious sedation the patient was deemed safe to proceed with today's procedure with IV conscious sedation as ASA class II designation. Safety time-out was performed to confirm patient ID, procedure to be performed and site of procedure. IV sedation was accomplished with a combination of 2mg of Versed was administered by the RN after DO order, titrated to patient comfort during the course of the procedure while the patient remained responsive to all verbal commands. In the prone position, following sterile prep and drape of the lumbar region, the right L4, L5 and S1 anatomical location of the medial branch of the dorsal ramus was identified fluoroscopically. Subsequently an anesthetic skin wheal using 1% lidocaine solution was initiated at each of the anatomical spots. Subsequently then a 22-gauge 3.5-inch spinal needle was atraumatically introduced and advanced under fluoroscopic guidance at each of the corresponding sites at the right L4, L5 and S1 MB. After negative aspiration, 0.2cc of Isovue 200 was injected, confirming placement without vascular or intrathecal uptake. Subsequently then 0.5cc of 2% Lidocaine solution was injected at each of the corresponding sites at the right L4, L5 and S1 medial branch locations. The identical procedure was replicated on the left. The patient tolerated the procedure well without signs or symptoms of complications prior to transfer to the recovery area continued monitoring without incident. Post-procedure, the patient was monitored initiating provocative activities to measure the amount of relief from block of the facetogenic pain. The patient reported a VAS of 7 prior to the procedure and a post-procedure VAS of 1. It has been a pleasure to assist in the diagnostic and therapeutic care of your patient. POST OP INSTRUCTIONS The patient was provided with a Pain Log to complete over the next several hours and subsequent days prior to the patient's follow up with the ordering physician. If the patient has customer service operator relief to the solution applied, then they may be a candidate for medial branch rhizotomy. The patient is aware, was provided, once again, with a Pain Log and will follow up with the referring physician for review and clinical correlation
== END 2023-02-25 15:26 | disposition home or self-care (01) ==
PROVIDERS: PCP Nurse Practitioner Family; Referring Provider Physical Medicine & Rehabilitation; Visit Provider Physical Medicine & Rehabilitation
DX: M47.816 Spondylosis without myelopathy or radiculopathy, lumbar region (principal); M47.817 Spondylosis without myelopathy or radiculopathy, lumbosacral region
CPT/HCPCS: 64493; 64494; 64495; 99152; J2250

== ENCOUNTER 2023-04-01 10:56 | Outpatient (CLI) | payer MEDICARE, OTHER, SELFPAY ==
[2023-04-01] VITALS (15 sets, daily range): BP systolic 100–137; BP diastolic 60–79; PULSE 63–73; RESP 11–18; TEMP 36.6; O2SAT 97–100
--- NOTE | 2023-04-01 10:57 | DI.RAD.S_ITS ---
PROCEDURE: PAIN L/S MED/LAT N RFA BILAT INDICATIONS: SPONDYLOSIS COMPARISON: [facility], , PAIN L/S FACET INJ/BLK 1ST ADELFO, 02/25/2023, 14:35. FINDINGS: Fluoroscopic spot filming was performed to verify placement of spinal needles on both sides at the L4, L5, and S1 levels, as labeled on the films. IMPRESSION: Images during rhizotomy within normal limits. Dictated by: Caden Kaye M.D. on 04/01/2023 at 14:26 Approved by: Caden Kaye M.D. on 04/01/2023 at 14:28
[2023-04-01] MEDS: MIDAZOLAM 2 MG/2 ML VIAL 1 MG IV ×2 (11:30→12:00)
[2023-04-01] MEDS: LIDOCAINE 1% 20 ML 5 ML INJ (11:33)
[2023-04-01] MEDS: BUPIVACAINE 0.5% (PF) 10 ML VIAL 5 ML INJ (11:33)
[2023-04-01] MEDS: LIDOCAINE 1% 20 ML INJ (12:00)
--- NOTE | 2023-04-01 12:22 | P.PCN_ITS ---
Date/Time/Diagnoses Date of procedure: 04/01/23 Time of procedure: 12:23 Pre-procedure diagnosis: 1. RECALCITRANT FACET ARTHROPATHY Post-procedure diagnosis: same Procedure Notes Procedure: 1. BILATERAL L4 AND L5 MEDIAL BRANCH RADIOFREQUENCY NEUROTOMY AND S1 DORSAL RAMUS BRANCH RADIOFREQUENCY NEUROTOMY Indications: Ashok is referred by ZACK Oliva for treatment of facet arthropathy. Physician: Rojelio Echavarria Total Fluoroscopy time (seconds): 38 Total sedation minutes: 44 Complications: none Procedure in detail & Post-procedure care: DESCRIPTION OF PROCEDURE Bilateral L4 and L5 medial branch radiofrequency neurotomy and bilateral S1 dorsal ramus radiofrequency neurotomy under fluoroscopy with conscious sedation. The patient is well known to this clinic having undergone previous facet injections with good but temporary relief. The patient has experienced appropriate, concordant relief with previous facet and median branch blocks but the patient's pain has been recalcitrant to further conservative measures. Therefore, based upon the patient's relief and persistent symptoms, the patient is considered an appropriate candidate for facet rhizotomy. All of the patient's questions regarding the risks versus benefits of the procedure, including, but not limited to, bleeding, infection, temporary as well as lasting nerve injury, paralysis, stroke, and , as well treatment alternatives were answered to satisfaction. After obtaining informed consent, denial of pertinent drug allergies, as well as being made aware of the potential risks of bleeding, infection, spinal cord trauma, paralysis, temporary and permanent nerve damage, seizure, stroke, and possible , the patient was brought to the fluoroscopy suite and positioned prone on the fluoroscopy table. The lumbar region was prepped with Betadine and covered with a fenestrated drape in the usual sterile fashion. Appropriate monitors applied including pulse oximeter, pulse, and blood pressure for regular monitoring throughout the procedure. After review of previous anaesthesic history and IV conscious sedation the patient was deemed safe to proceed with today's procedure with IV conscious sedation as ASA class II designation. Safety time-out was performed to confirm patient ID, procedure to be performed and site of procedure. IV sedation was accomplished with a combination of 2mg of Versed administered by the RN after DO order, titrated to patient comfort during the course of the procedure while the patient remained responsive to all verbal commands. After local infiltration using 1% lidocaine, under fluoroscopic guidance, a 10- cm RF insulated needle with a 10-mm active tip was positioned parallel to the junction of the right sacral ala and the superior articulating process where the S1 dorsal ramus resides. Needle placement was confirmed with motor stimulation of .5v on the right which produced local stimulation without radicular component. The stimulation was then increased to 2v with, once again, only local multifidus stimulation without radicular component. The needle was then removed and the identical procedure was performed along the length of the right L5 medial branch with motor stimulation at .7v on the right. The identical procedure was once again performed along the length of the right L4 medial branch with motor stimulation of .5v on the right. The medial branches were then anesthetised with 0.5% Marcaine. This was then followed by two discreet lesions performed at 80 degrees Celsius for 90 seconds each. The identical procedure was repeated on the left. The patient tolerated the procedure well without signs or symptoms of complications prior to transfer to the recovery area continued monitoring without incident. The patient was then transferred to the recovery area where they were observed for an appropriate period of time after the injection. The patient reported a VAS score of 9 prior to the procedure and a post-procedure VAS of 0. POST OP INSTRUCTIONS The patient was provided a Pain Log to continue to record the patient's response to the target-specific procedure prior to the patient's follow-up visit with the referring physician. Additionally, specific post-injection care instructions and a contact number to our office were provided if concerns arise regarding possible complications associated with the procedure are suspected.
--- NOTE | 2023-04-01 13:55 | PC.NURSE ---
Patient received post injection with known hematoma to top left injection site. Bandaid reinforced with 2X2 and tegaderm. Visible reduction seen upon discharge. Patient instructed to monitor for progression and to alert Dr. Echavarria if changes or new symptoms/concerns arise.
== END 2023-04-01 12:38 | disposition home or self-care (01) ==
LOC: RAD 10:56
PROVIDERS: PCP Nurse Practitioner Family; Referring Provider Physical Medicine & Rehabilitation; Visit Provider Physical Medicine & Rehabilitation
DX: M47.816 Spondylosis without myelopathy or radiculopathy, lumbar region (principal); M47.817 Spondylosis without myelopathy or radiculopathy, lumbosacral region
CPT/HCPCS: 64635; 64636; 99152; 99153; J2250

== ENCOUNTER 2023-10-13 10:01 | Day surgery (SDC) | payer MEDICARE, OTHER, SELFPAY ==
--- NOTE | 2023-10-13 | PATH_ITS ---
[facility] Accession Number: [id number] No. of containers..04 Tissue . 01 Material submitted: . PART A: stomach - ANTRUM PART B: esophagus, E-G Junction - GE JUNCTION PART C: esophagus - MID ESOPHAGUS PART D: colon - ASCENDING POLYP . 01 Diagnosis: Part A: ANTRUM: Gastric mucosa with mild chronic inflammation and intestinal metaplasia. No Helicobacter organisms identified. No dysplasia or malignancy identified. . Part B: GE JUNCTION: Gastroesophageal junction mucosa with changes suggestive of reflux. No goblet cell metaplasia or dysplasia identified. . Part C: MID ESOPHAGUS: Squamous mucosa with no diagnostic alterations. Eosinophils are not increased. . Part D: ASCENDING POLYP: Tubular adenoma. [facility] 10/16/2023 1347 Local . 01 Electronically signed: . Alf Sapp MD, Pathologist NPI- [id number] . 01 Gross description: . Part A: ANTRUM: Received in formalin are 2 fragment(s) of cristobal, soft tissue measuring 0.2 x 0.2 x 0.2 cm to 0.3 x 0.3 x 0.3 cm submitted entirely in 1 cassette(s) . Part B: GE JUNCTION: Received in formalin are 2 fragment(s) of cristobal, soft tissue measuring 0.1 x 0.1 x 0.1 cm to 0.2 x 0.2 x 0.2 cm submitted entirely in 1 cassette(s) . Part C: MID ESOPHAGUS: Received in formalin are 3 fragment(s) of cristobal, soft tissue measuring 0.1 x 0.1 x 0.1 cm to 0.3 x 0.2 x 0.2 cm submitted entirely in 1 cassette(s) . Part D: ASCENDING POLYP: Received in formalin is 1 fragment(s) of cristobal, soft tissue measuring 0.3 x 0.3 x 0.3 cm submitted entirely in 1 cassette(s) /[facility] 10/16/2023 1347 Local . 01 Microscopic: . Part A: ANTRUM: An immunohistochemical stain was performed to evaluate for Helicobacter organisms and is negative. The control stains appropriately. * This test was developed and its performance characteristics determined by [facility]. It has not been cleared or approved by the U.S. Food and Drug Administration. The FDA has determined that such clearance or approval is not necessary. This test is used for clinical purposes. It should not be regarded as investigational or for research. . 01 Pathologist provided ICD-10: D12.2, K21.00, K29.50 . 01 CPT . 832332, 010976, 483499, 699117, P42291 Specimen Comment: A courtesy copy of this report has been sent to [phone] Performed at: 01 [facility] [address] [place] [address], [place], [place] [id number] MD Alf Sapp MD Phone: [phone]
[2023-10-13 10:53] VITALS: BP 118/72; PULSE 58; RESP 16; TEMP 36.2; O2SAT 98
--- NOTE | 2023-10-13 10:56 | P.HP_ITS ---
History of Present Illness History of Present Illness Date Patient Seen: 10/13/23 Time Patient Seen: 10:56 Chief complaint: EGD/Colonoscopy Narrative: Here for EGD and colonoscopy. 68-year-old male with intermittent dysphagia. He is indicated for colon cancer screening simultaneously. [facility] Medical History Bunion Herniated nucleus pulposus, L4-5 Facet arthropathy, lumbar Shoulder impingement syndrome History of cerebrovascular accident (CVA) due to embolism Cervical radiculopathy at C6 Facet arthropathy, cervical Granulomatous rosacea Chronic low back pain Primary osteoarthritis involving multiple joints Osteoporosis History of hyperparathyroidism Mixed hyperlipidemia Cerebrovascular disease Medicare annual wellness visit, initial Erectile dysfunction BPH w/o urinary obs/LUTS History of nephrolithiasis Osteoporosis CVA (cerebral vascular accident) Surgical History H/O lithotripsy H/O parathyroidectomy Family History Father Stroke High blood cholesterol Hypertension Mother No problems noted. Social History marital status: number of children: 3 Smoking Status: Never smoker alcohol intake: current Meds Home Medications and Allergies Home Medications Medication Instructions Recorded Confirmed Type GLUCOSAMINE/CHONDROITIN SULF A 1 cap PO Q DAY ##0 01/27/12 10/13/23 History (Glucosamine-Chondroitin Cap) aspirin 325 mg tablet,delayed 81 mg PO QDAY ##0 01/27/12 10/13/23 History release tadalafil 2.5 mg tablet (Cialis) 2.5 mg PO DAILY BPH #90 tabs 12/06/21 10/13/23 Rx cholecalciferol (vitamin D3) 50 50 mcg PO DAILY 02/08/22 10/13/23 History mcg (2,000 unit) capsule coenzyme Q10 30 mg capsule (Co 60 mg PO DAILY 02/08/22 10/13/23 History Q-10) doxycycline hyclate 50 mg tablet 100 mg PO DAILY 02/08/22 10/13/23 History multivitamin 1 tab PO DAILY 02/08/22 10/13/23 History tamsulosin 0.4 mg capsule 0.4 mg PO DAILY PRN kidney stones 02/08/22 06/09/23 Rx #30 caps atorvastatin 20 mg tablet 20 mg PO DAILY #90 tabs 02/11/22 10/13/23 Rx cyclobenzaprine 10 mg tablet 10 mg PO BID PRN muscle spasm #60 02/05/23 10/13/23 Rx tabs tramadol 50 mg tablet 50 mg PO TID PRN pain #30 tabs 03/10/23 10/13/23 Rx gabapentin 100 mg capsule 200 mg (2 x 100 mg) PO DAILY #180 06/09/23 10/13/23 Rx caps testosterone 1 % (50 mg/5 gram) 1 packet transdermal DAILY 06/09/23 10/13/23 History transdermal gel packet Allergies Allergy/AdvReac Type Severity Reaction Status Date / Time Fish Containing Products Allergy Unknown Verified 06/09/23 09:34 No Known Allergies Allergy Uncoded 06/09/23 09:34 Review of Systems Review of Systems ROS: Yes All systems reviewed with the patient and are negative except as otherwise documented Exam Vital Signs (past 8 hours): - 10/13/23 10:53 Temperature 97.2 F L Pulse Rate 58 L Respiratory Rate 16 Blood Pressure 118/72 Pulse Oximetry 98 Oxygen Delivery Method Room Air Oxygen Delivery Method Room Air Const General: cooperative HENMT Head: normal to inspection Eyes General: appearance normal, both eyes and all related structures Neck Neck: normal visual inspection Chest Chest: normal inspection of the chest Resp Effort & Inspection: normal respiratory effort Cardio Rate: regular rate GI Inspection: normal to inspection Skin General: no rashes or lesions noted Neuro General: patient alert and patient awake Extrem General: normal to inspection and no pedal edema Psych Appearance: grossly normal Assessment & Plan Assessment & Plan narrative: 68-year-old male with intermittent dysphagia. Diagnostic and potentially thera peutic EGD is pursued along with colonoscopy for colon cancer screening today.
--- NOTE | 2023-10-13 10:57 | PM.PREOP ---
Pre-operative Note Interval Note History & Physical reviewed/Exam performed by Physician: Yes Changes to H&P: No ASA Class (for procedural sedation): II
[2023-10-13] MEDS: LACTATED RINGERS 1,000 ML 100 ML IV (11:06)
--- NOTE | 2023-10-13 12:30 | P.OP.EGD&C_ITS ---
Operative Date/Time/Diagnoses Date of procedure: 10/13/23 Time of procedure: 12:30 Pre-op diagnosis: Dysphagia, colon cancer screening Post-op diagnosis: same Procedure & Clinicians Study performed: EGD with biopsies and colonoscopy with cold snare polypectomy Same procedure as scheduled: Yes Indications: Dysphagia, colon cancer screening. Surgeon: Brent Santizo Procedure Notes SCOAP/Timeout: Done Procedure in detail: After the risks and benefits were explained, written and verbal informed consent was obtained. The patient was brought into the procedure room and placed into the left lateral decubitus position. Please see anesthesia note for sedation details. Digital rectal examination was accomplished. The scope was introduced into the patient and advanced under direct visualization to the cecum as identi fied by the appendiceal orifice and ileocecal valve. The scope was slowly withdrawn to carefully examine the mucosa for any defects or lesions. Comprehensive imaging was accomplished throughout the rectum including the dentate line. The colon was decompressed, the scope was then removed from the patient who tolerated the procedure well. Pediatric colonoscope, Bowel prep adequate Complications: none Impression: 1. Duodenum: This was normal from the bulb through to the 2nd portion. 2. Stomach: There was a mild erosive gastropathy noted within the antrum. Biopsies were acquired to exclude Helicobacter infection. That said, I suspect this was simply a function of his regular aspirin use. Retroflexed views of the LES disclosed a Hill valve grade 2. 3. Esophagus: There was a very subtle sliding hiatal hernia noted. The patient had evidence of LA grade a erosive esophagitis. There was no stricture nor any mass lesion identified in the esophagus. GEJ was at approximately 41 cm from the incisors. There was an early noncircumferential Schatzki's which appeared to be present intermittently. Disruptive biopsy was taken through the region of the squamocolumnar junction/GE junction and distal esophagus. In the midesophagus there were tightly grouped circumferential folds intermittently seen. I did not see any erosions nor any longitudinal furrows. This suggested the possibility of mild eosinophilic esophagitis. Midesophageal biopsies were therefore acquired. 4. Colon: Patient had a slightly tortuous colon. There was some scattered diverticulosis in the sigmoid region. A 5 mm polyp was removed by way of cold snare from the ascending colon. No additional pathology was appreciated throughout with the exception of some mild internal hemorrhoids grade 1 with hypertrophied anal papillae. Endoscopic diagnosis 1. Subtle sliding hiatal hernia 2. LA grade A erosive esophagitis 3. Erosive gastropathy 4. Possible eosinophilic esophagitis 5. Small colon polyp 6. Diverticulosis 7. Grade 1 hemorrhoids with hypertrophied anal papillae Post-procedure Plan for aftercare: 1. Await histology. 2. Initiate once daily omeprazole 20 mg. This should be taken about 30-60 minutes before the 1st meal of the day on an empty stomach. 3. The timing for surveillance upper endoscopy will be contingent on histology and response to omeprazole. 4. Repeat colonoscopy will likely be suggested for 7 years. 5. Follow up GI clinic 4-6 weeks Disposition: PACU
[2023-10-13 12:35] VITALS: BP 90/60; PULSE 82; RESP 17; TEMP 36.2; O2SAT 95
[2023-10-13 12:41] VITALS: BP 84/45; PULSE 68; RESP 14; O2SAT 99
[2023-10-13 12:45] VITALS: BP 94/60; PULSE 63; RESP 16; O2SAT 98
[2023-10-13 12:50] VITALS: BP 105/74; PULSE 69; RESP 12; O2SAT 100
[2023-10-13 12:55] VITALS: BP 134/82; PULSE 64; RESP 14; O2SAT 100
== END 2023-10-13 13:16 | disposition home or self-care (01) ==
PROVIDERS: PCP Nurse Practitioner Family; Referring Provider Internal Medicine Gastroenterology; Visit Provider Internal Medicine Gastroenterology
PROC: 0DJ08ZZ Inspection of Upper Intestinal Tract, Via Natural or Artificial Opening Endoscopic (ICD-10-PCS; CPT 43235; principal; 2023-10-13 11:00)
PROC: 0DJD8ZZ Inspection of Lower Intestinal Tract, Via Natural or Artificial Opening Endoscopic (ICD-10-PCS; CPT 45378; 2023-10-13 11:00)
DX: Z12.11 Encounter for screening for malignant neoplasm of colon (principal); R13.10 Dysphagia, unspecified; K44.9 Diaphragmatic hernia without obstruction or gangrene; K20.90 Esophagitis, unspecified without bleeding; K31.89 Other diseases of stomach and duodenum; K57.30 Diverticulosis of large intestine without perforation or abscess without bleeding; K64.0 First degree hemorrhoids; K64.4 Residual hemorrhoidal skin tags; K29.50 Unspecified chronic gastritis without bleeding; D12.2 Benign neoplasm of ascending colon
CPT/HCPCS: 45385; 43239; J2704

== ENCOUNTER 2023-12-23 10:03 | Outpatient (CLI) | payer MEDICARE, OTHER, SELFPAY ==
[2023-12-23] VITALS (8 sets, daily range): BP systolic 120–143; BP diastolic 67–87; PULSE 63–74; RESP 14–19; TEMP 36.7; O2SAT 71–100
[2023-12-23] MEDS: MIDAZOLAM 2 MG/2 ML VIAL IV (10:44)
--- NOTE | 2023-12-23 10:45 | DI.RAD.S_ITS ---
PROCEDURE: PAIN L INTERLAMINAR/CAUDAL INJ INDICATIONS: L4-5 translaminar RICHA COMPARISON: None. FINDINGS: Fluoroscopic spot filming was performed to verify placement of spinal needles at the L4-5 level(s), as labeled on the films. Appropriate location(s) of the needle tip(s) was confirmed by injection of iodinated contrast. IMPRESSION: Fluoroscopic guidance utilized for an epidural injection at L4-5. Dictated by: Isauro Acharya M.D. on 12/23/2023 at 12:08 Approved by: Isauro Acharya M.D. on 12/23/2023 at 12:08
[2023-12-23] MEDS: BUPIVACAINE 0.25% (PF) VIAL 2 ML INJ (10:46)
[2023-12-23] MEDS: iopamidoL 15 ML VIAL 3 ML INJ (10:46)
[2023-12-23] MEDS: DEXAMETHASONE 10 MG/ML VIAL INJ (10:47)
[2023-12-23] MEDS: BETAMETHASONE 30 MG/5 ML MDV 6 MG INJ (10:47)
--- NOTE | 2023-12-23 10:57 | P.PCN_ITS ---
Date/Time/Diagnoses Date of procedure: 12/23/23 Time of procedure: 10:57 Pre-procedure diagnosis: 1. HNP WITH RADICULAR FEATURES, 2. MULTILEVEL CENTRAL STENOSIS, Post-procedure diagnosis: same Procedure Notes Procedure: 1. FLUOROSCOPICALLY GUIDED CONTRAST CONTROLLED INTERLAMINAR EPIDURAL STEROID INJECTION -L4/5 Indications: Ashok is referred by ZACK Oliva for treatment of Bilateral Foraminal Stenosis R>L LE symptoms. Physician: Rojelio Echavarria Total Fluoroscopy time (seconds): 6 Total sedation minutes: 10 Complications: none Procedure in detail & Post-procedure care: FINDINGS Multilevel Central Spinal Stenosis with Nerve Root Compression DESCRIPTION OF PROCEDURE Fluoroscopically guided, contrast-controlled L4/5 translaminar epidural steroid injection. Following review of allergy and review of potential side effects and complications, including, but not necessarily limited to, infection, allergic reaction, local tissue breakdown, temporary as well as permanent nerve injury, paralysis, stroke and possible , the patient indicated that the patient understood and agreed to proceed. An informed consent document was signed by the patient, witnessed by a nurse, and placed in the patient's chart. Additionally, other treatment options including modalities, medications, and physical therapy were reviewed with the patient. After review of previous anaesthesic history and IV conscious sedation the patient was deemed safe to proceed with today?s procedure with IV conscious sedation as ASA class II designation. Safety time-out was performed to confirm patient ID, procedure to be performed and site of procedure. IV sedation was accomplished with a combination of 2mg of Versed was administered by the RN after DO order, titrated to patient comfort during the course of the procedure while the patient remained responsive to all verbal commands In the prone position, following sterile prep and drape of the lumbar region, the L4/5 translaminar space was identified fluoroscopically. The skin was anesthetized via a 25-gauge, 1.5inch needle with 1% lidocaine solution. At this point, a 22-gauge short bevel spinal needle was atraumatically introduced and a dvanced under fluoroscopic guidance into the region of the L4/5 translaminar space. Depth was confirmed on lateral view. Radiological data, including multiple fluoroscopic views of the lumbar spine, reveal a spinal needle at the L4/5 translaminar space. Lateral views then show placement of the needle in the epidural space. Subsequent views show contrast material flowing superiorly and inferiorly in the epidural space. No vascular or intrathecal uptake is observed. At this point, using loss of resistance technique with saline and air, the epidural space was entered. This was confirmed following negative aspiration with injection of approximately 1.5cc of Isovue 200, showing excellent epidural flow without vascular or intrathecal uptake. At this point, 1cc of 1% lidocaine solution combined with 2cc or 10mg of dexamethasone and 6mg betamethasone was injected without incident. The patient tolerated the procedure well without signs or symptoms of complications prior to transfer to the recovery area continued monitoring without incident. The patient was then transferred to the recovery area where they were observed for an appropriate period of time after the injection. The patient reported a VAS score of 6 prior to the procedure and a post- procedure VAS of 0. POST OP INSTRUCTIONS The patient was provided a Pain Log to continue to record their response to the target-specific procedure prior to follow-up visit with their referring physician. Additionally, specific post-injection care instructions and a contact number to our office were provided if concerns arise regarding possible complications associated with the procedure are suspected.
== END 2023-12-23 11:25 | disposition home or self-care (01) ==
LOC: RAD 10:03
PROVIDERS: PCP Nurse Practitioner Family; Referring Provider Physical Medicine & Rehabilitation; Visit Provider Physical Medicine & Rehabilitation
DX: M51.16 Intervertebral disc disorders with radiculopathy, lumbar region (principal); M48.061 Spinal stenosis, lumbar region without neurogenic claudication
CPT/HCPCS: 62323; 99152; J0702; J1100; J2250; J3490

== ENCOUNTER 2024-03-08 11:30 | Day surgery (SDC) | payer MEDICARE, OTHER, SELFPAY ==
--- NOTE | 2024-03-08 | PATH_ITS ---
[facility] Accession Number: [id number] No. of containers..05 Tissue . 01 Material submitted: . PART A: gastrointestinal site - ANTRUM PART B: gastrointestinal site - ANTRUM ANGULARIS BIOPSY PART C: gastrointestinal site - STOMACH, LESSER CURVED PART D: gastrointestinal site - STOMACH, GREATER CURVED PART E: gastrointestinal site - STOMACH, BODY . 01 Diagnosis: Part A: ANTRUM: Gastric mucosa with minimal chronic inflammation. No Helicobacter organisms identified on H/E stain. No intestinal metaplasia, dysplasia, or malignancy identified. . Part B: ANTRUM ANGULARIS BIOPSY: Gastric mucosa with mild chronic inflammation. No Helicobacter organisms identified. No intestinal metaplasia, dysplasia, or malignancy identified. . Part C: STOMACH, LESSER CURVED: Gastric mucosa with mild chronic inflammation. No Helicobacter organisms identified. No intestinal metaplasia, dysplasia, or malignancy identified. . Part D: STOMACH, GREATER CURVED: Gastric mucosa with minimal chronic inflammation. No Helicobacter organisms identified. No intestinal metaplasia, dysplasia, or malignancy identified. . Part E: STOMACH, BODY: Gastric oxyntic mucosa with no diagnostic alterations. No Helicobacter organisms identified on H/E stain. No intestinal metaplasia, dysplasia, or malignancy identified. [facility] 03/10/2024 [facility]2 Local . 01 Comment: Parts B-C: Immunohistochemical stains were performed to evaluate for Helicobacter organisms and is negative. The control stains appropriately. * This test was developed and its performance characteristics determined by [facility]. It has not been cleared or approved by the U.S. Food and Drug Administration. The FDA has determined that such clearance or approval is not necessary. This test is used for clinical purposes. It should not be regarded as investigational or for research. . 01 Electronically signed: . Alf Sapp MD, Pathologist NPI- [id number] . 01 Gross description: . Part A: ANTRUM: Received in formalin is 1 fragment(s) of critsobal, soft tissue measuring 0.2 x 0.2 x 0.2 cm submitted entirely in 1 cassette(s) . Part B: ANTRUM ANGULARIS BIOPSY: Received in formalin are 3 fragment(s) of cristobal, soft tissue measuring 0.1 x 0.1 x 0.1 cm to 0.2 x 0.2 x 0.2 cm submitted entirely in 1 cassette(s) . Part C: LESSER CURVED: Received in formalin are 2 fragment(s) of cristobal, soft tissue measuring 0.1 x 0.1 x 0.1 cm to 0.3 x 0.3 x 0.2 cm submitted entirely in 1 cassette(s) . Part D: GREATER CURVED: Received in formalin is 1 fragment(s) of cristobal, soft tissue measuring 0.4 x 0.2 x 0.2 cm submitted entirely in 1 cassette(s) . Part E: BODY: Received in formalin is 1 fragment(s) of cristobal, soft tissue measuring 0.3 x 0.2 x 0.2 cm submitted entirely in 1 cassette(s) /[facility] 03/10/2024 1332 Local . 01 Pathologist provided ICD-10: K29.30, K29.50 . 01 CPT . 700640, 572872, 651617, 894129, 655433, [id number] Specimen Comment: A courtesy copy of this report has been sent to [phone] Performed at: [address] [facility], [place], [place] [id number] MD Alf Sapp MD Phone: [phone]
[2024-03-08 11:43] VITALS: BP 155/98; PULSE 70; RESP 16; TEMP 36.6; O2SAT 100
--- NOTE | 2024-03-08 11:48 | P.HP_ITS ---
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 He presents today for repeat EGD for gastric mapping. He stopped omeprazole about month ago. In the last 7 days or so he has had a slight increase in intermittent symptoms of pyrosis but nothing like it was before. [facility] Medical History Bunion Herniated nucleus pulposus, L4-5 Facet arthropathy, lumbar Shoulder impingement syndrome History of cerebrovascular accident (CVA) due to embolism Cervical radiculopathy at C6 Facet arthropathy, cervical Granulomatous rosacea Chronic low back pain Primary osteoarthritis involving multiple joints Osteoporosis History of hyperparathyroidism Mixed hyperlipidemia Cerebrovascular disease Medicare annual wellness visit, initial Erectile dysfunction BPH w/o urinary obs/LUTS History of nephrolithiasis Osteoporosis CVA (cerebral vascular accident) Surgical History H/O lithotripsy H/O parathyroidectomy Family History Father Stroke High blood cholesterol Hypertension Mother No problems noted. Social History marital status: number of children: 3 Smoking Status: Never smoker alcohol intake: current Meds Home Medications and Allergies Home Medications Medication Instructions Recorded Confirmed Type GLUCOSAMINE/CHONDROITIN SULF A 1 cap PO Q DAY ##0 01/27/12 03/03/24 History (Glucosamine-Chondroitin Cap) aspirin 325 mg tablet,delayed 81 mg PO QDAY ##0 01/27/12 03/08/24 History release tadalafil 2.5 mg tablet (Cialis) 2.5 mg PO DAILY BPH #90 tabs 12/06/21 03/03/24 Rx cholecalciferol (vitamin D3) 50 50 mcg PO DAILY 02/08/22 03/03/24 History mcg (2,000 unit) capsule coenzyme Q10 30 mg capsule (Co 60 mg PO DAILY 02/08/22 03/03/24 History Q-10) multivitamin 1 tab PO DAILY 02/08/22 03/03/24 History tamsulosin 0.4 mg capsule 0.4 mg PO DAILY PRN kidney stones 02/08/22 03/03/24 Rx #30 caps atorvastatin 20 mg tablet 20 mg PO DAILY #90 tabs 02/11/22 03/03/24 Rx cyclobenzaprine 10 mg tablet 10 mg PO BID PRN muscle spasm #60 02/05/23 03/03/24 Rx tabs doxycycline hyclate 50 mg capsule 50 mg PO DAILY 12/01/23 03/03/24 History gabapentin 100 mg capsule 200 mg (2 x 100 mg) PO TID #180 12/01/23 03/03/24 Rx caps needle (disp) 18 G 18 gauge x 1 #1,000 ea 12/01/23 03/03/24 History 1/2 (BD Regular Bevel [place]) syringe with needle 3 mL 22 x 1 #100 ea 12/01/23 03/03/24 History 1/2 testosterone cypionate 200 mg/mL 200 mg IM QMONTH 12/01/23 03/03/24 History intramuscular oil tramadol 50 mg tablet 50 mg PO TID PRN pain #30 tabs 12/02/23 03/03/24 Rx ketorolac 0.5 % eye drops 1 drp EYE-BOTH ONCE 03/03/24 03/03/24 History latanoprost 0.005 % eye drops 1 drp EYE-BOTH DAILY 03/03/24 03/03/24 History piroxicam 20 mg capsule (Feldene) 20 mg PO DAILY #90 caps 03/03/24 03/03/24 Rx syringe with needle 3 mL 23 x 1 #1 ea 03/03/24 03/03/24 History (BD Luer-Abiodun Syringe) Allergies Allergy/AdvReac Type Severity Reaction Status Date / Time Fish Containing Products Allergy Unknown Verified 03/08/24 11:40 Review of Systems Review of Systems ROS: Yes All systems reviewed with the patient and are negative except as otherwise documented Exam Vital Signs (past 8 hours): - 03/08/24 11:43 Temperature 97.9 F Pulse Rate 70 Respiratory Rate 16 Blood Pressure 155/98 H Pulse Oximetry 100 Oxygen Delivery Method Room Air Oxygen Delivery Method Room Air Const General: cooperative HENMT Head: normal to inspection Eyes General: appearance normal, both eyes and all related structures Neck Neck: normal visual inspection Chest Chest: normal inspection of the chest Resp Effort & Inspection: normal respiratory effort Cardio Rate: regular rate GI Inspection: normal to inspection Skin General: no rashes or lesions noted Neuro General: patient alert and patient awake Extrem General: normal to inspection and no pedal edema Psych Appearance: grossly normal Assessment & Plan Assessment & Plan narrative: 69-year-old male with reflux esophagitis and a history of gastric intestinal metaplasia. Repeat EGD is pursued today to evaluate for healing in the distal esophagus and to obtain further biopsies by way of gastric mapping. Time-Based Coding :: [TOTAL MINUTES] spent with patient and on the chart (including review of chart, obtaining history, exam, reviewing outside data, placing orders, documenting exam and treatment plan, and counseling patient) on [DATE].
--- NOTE | 2024-03-08 11:50 | PM.PREOP ---
Pre-operative Note Interval Note History & Physical reviewed/Exam performed by Physician: Yes Changes to H&P: No ASA Class (for procedural sedation): II
[2024-03-08] MEDS: LACTATED RINGERS 1,000 ML 42 ML IV (12:03)
--- NOTE | 2024-03-08 12:59 | PM.OP.EGD ---
Operative Date/Time/Diagnoses Date of procedure: 03/08/24 Time of procedure: 12:59 Pre-op diagnosis: History of erosive esophagitis and gastric intestinal metaplasia Post-op diagnosis: same Procedure & Clinicians Study performed: EGD with biopsies Same procedure as scheduled: Yes Indications: History of erosive esophagitis and gastric intestinal metaplasia Surgeon: Brent Santizo Procedure Notes SCOAP/Timeout: Done Procedure in detail: After the risks and benefits were explained, written and verbal informed consent was obtained. The patient was brought into the procedure room and placed into the left lateral decubitus position. Please see anesthesia notes for sedation details. The scope was introduced into the mouth through the bite block and advanced under direct visualization to the 2nd portion of the duodenum. The scope was slowly withdrawn carefully examining the mucosa for any defects or lesions. Retroflexed views were accomplished in the stomach. The stomach was decompressed, the scope was then removed from the patient who tolerated the procedure well. Sedation minutes: 13 Complications: none Impression: 1. Duodenum: There were some scattered subtle erosive features in the duodenal bulb consistent with aspirin use. Otherwise no significant duodenal pathology through to the 2nd portion. 2. Stomach: No ulcers mass lesions or outlet obstruction identified. Mild diffuse gastropathy a little more pronounced in the antrum was evident. Biopsies were taken from the antrum, angularis, lesser curve, greater curve, and gastric body. These were submitted separately for histopathologic analysis. Retroflexed views of the LES disclosed Hill valve grade 3. 3. Esophagus: The squamocolumnar junction correlated with the top of the gastric folds for the most part. GEJ was at about 42 cm from the incisors. The Z-line was variable but but this is most likely a function of healing esophagitis more than anything else. I did not repeat biopsies today. The patient once again had LA grade a erosive esophagitis. The remainder of the esophagus was unremarkable. Subtle sliding hiatal hernia was noted. Endoscopic diagnosis 1. Small subtle sliding hiatal hernia 2. LA grade a erosive esophagitis 3. Gastropathy status post gastric mapping 4. Scattered proximal duodenal erosions-likely the sequelae of chronic aspirin therapy Post-procedure Plan for aftercare: 1. Await histology. 2. Surveillance upper endoscopy will be contingent on pathology results. 3. I recommend re-initiation of anti-reflux therapy with omeprazole based on today's findings. Disposition: PACU
[2024-03-08 13:04] VITALS: BP 105/68; PULSE 58; RESP 14; TEMP 36.3; O2SAT 97
[2024-03-08 13:09] VITALS: BP 99/70; PULSE 60; RESP 20; O2SAT 98
[2024-03-08 13:14] VITALS: BP 119/87; PULSE 62; RESP 18; O2SAT 97
[2024-03-08 13:18] VITALS: BP 109/85; PULSE 62; RESP 16; TEMP 36.1; O2SAT 98
== END 2024-03-08 13:29 | disposition home or self-care (01) ==
PROVIDERS: PCP Nurse Practitioner Family; Referring Provider Internal Medicine Gastroenterology; Visit Provider Internal Medicine Gastroenterology
PROC: 0DJ08ZZ Inspection of Upper Intestinal Tract, Via Natural or Artificial Opening Endoscopic (ICD-10-PCS; CPT 43235; principal; 2024-03-08 12:30)
DX: K20.80 Other esophagitis without bleeding (principal); Z87.19 Personal history of other diseases of the digestive system; K44.9 Diaphragmatic hernia without obstruction or gangrene; K31.9 Disease of stomach and duodenum, unspecified; K26.9 Duodenal ulcer, unspecified as acute or chronic, without hemorrhage or perforation; K29.50 Unspecified chronic gastritis without bleeding
CPT/HCPCS: 43239; J2704

== ENCOUNTER → 2025-02-09 13:08 | Outpatient (CLI) | payer MEDICARE, OTHER, SELFPAY ==
--- NOTE | 2025-02-09 13:09 | DI.MRI.S_ITS ---
PROCEDURE: MR BRAIN (IAC) WWO CON INDICATIONS: asymmetrical sensorineural hearing loss TECHNIQUE: Noncontrast sagittal T1 spin echo, axial FLAIR, axial gradient echo, axial diffusion and ADC through the brain. Axial thin-slice 3D CISS, coronal TruFISP, axial T1 spin echo with fat saturation through the internal auditory canals. After the administration of contrast, thin slice axial and coronal T1 spin echo with fat saturation through the internal auditory canals, and axial and coronal and sagittal T1 spin echo with fat saturation through the brain. COMPARISON: None. FINDINGS: Cerebellopontine angles: No cerebellopontine angle masses. Inner ear structures appear normally formed. No suspicious enhancement in the internal auditory canal or along the course of the 7th cranial nerve. CSF spaces: Ventricles are normal in size and shape. No extra-axial fluid collections. Basal cisterns are patent. Brain: No intracranial masses or hemorrhage. Whitehead/white matter interface is normal. Brainstem appears normal. Diffusion-weighted sequence is unremarkable without evidence of acute infarct. Normal intravascular flow voids are present. Encephalomalacia and gliosis noted involving the right occipital lobe lingular gyrus. Skull and face: Calvarial marrow signal is normal. Orbits appear normal. Sinuses: Sinuses and mastoids are clear. IMPRESSION: Unremarkable MR of the internal auditory canals and 7/8 cranial nerves. No evidence of schwannoma Old right occipital infarct. No evidence of acute infarct, hemorrhage or mass lesion Approved by: Kenneth Swartz M.D. on 02/09/2025 at 15:40
== END ==
LOC: MRI 13:09
PROVIDERS: PCP Nurse Practitioner Family; Referring Provider Otolaryngology; Visit Provider Otolaryngology
DX: H90.3 Sensorineural hearing loss, bilateral (principal); Z86.73 Personal history of transient ischemic attack (TIA), and cerebral infarction without residual deficits
CPT/HCPCS: 70553; A9579

== ENCOUNTER → 2025-06-14 10:59 | Outpatient (CLI) | payer MEDICARE, OTHER, SELFPAY ==
--- NOTE | 2025-06-14 11:00 | DI.RAD.S_ITS ---
PROCEDURE: XR DEXA AXIAL SKELETON INDICATIONS: Osteoporosis Screening COMPARISON: [facility], , DEXA AXIAL SKELETON, 05/20/2016, 13:50. FINDINGS: Lumbar Spine: Bone mineral density 1.084 g/cm2, T score 0.2, normal density. Dissimilar scan techniques limit evaluation. Left Femoral Neck: Bone mineral density 0.595 g/cm2, T score -2.3. Left Hip: Bone mineral density 0.76 by g/cm2, T score -1.5, osteopenia. Fracture Risk Calculation (when applicable): 10-year fracture risk of a major osteoporotic fracture 8.8 percent and of a hip fracture 2.9 percent. (T score greater or equal to -1.0 to: NORMAL) (T score from -1.1 to -2.4: OSTEOPENIA) (T score less than or equal to -2.5: OSTEOPOROSIS) IMPRESSION: Osteopenia. Follow-up guidelines as follows: Osteoporosis: Consider a repeat DEXA and Vertebral Fracture Assessment (VFA) exam in 2 years or sooner if medically necessary, to reassess this patient's status. Osteopenia: Consider a repeat DEXA in 2-3 years to reassess this patient's status, or if there is a new clinical indication. Normal: Consider a repeat DEXA in 5 years or sooner, or if there is a new clinical indication. All treatment decisions require clinical judgment and consideration of individual patient factors, including patient preferences, comorbidities, previous drug use, risk factors not captured in the FRAX model (e.g., frailty, falls, vitamin D deficiency, increased bone turnover, interval significant decline in bone density ) and possible under- or over-estimation of fracture risk by FRAX. In addition, the NOF Guide recommends that FDA-approved medical therapies be considered in postmenopausal women and men age >= 50 years with a: * Hip or vertebral (clinical or morphometric) fracture * T-score of <=-2.5 at the spine or hip * Ten-year fracture probability by FRAX of >= 3% for hip fracture or >=20% for major osteoporotic fracture. Dictated by: Daniela Cavanaugh M.D. on 06/15/2025 at 9:00 Approved by: Daniela Cavanaugh M.D. on 06/15/2025 at 9:02
== END ==
LOC: RAD 11:00
PROVIDERS: PCP Nurse Practitioner Family; Referring Provider Nurse Practitioner Family; Visit Provider Nurse Practitioner Family
DX: M81.0 Age-related osteoporosis without current pathological fracture (principal); Z98.890 Other specified postprocedural states; Z90.89 Acquired absence of other organs
CPT/HCPCS: 77080